=== PATIENT | female | born 1930 | race Caucasian/White ===

== ENCOUNTER 2017-02-02 23:41 | Inpatient (IN) ==
[2017-02-03] MEDS ORDERED: ONDANSETRON 4 MG/2 ML VIAL IV STA (00:01)
[2017-02-03] MEDS ORDERED: NITROGLYCERIN 2% OINT 1 INCH/GM PACK TOP STA (00:01)
[2017-02-03] MEDS ORDERED: ALUM/MAG/SIMETH/LIDO VISC 1:1 30 ML BOTTLE PO STA (00:01)
[2017-02-03] MEDS ORDERED: SODIUM CHLORIDE 0.9% 500 ML IV STA (00:01)
[2017-02-03] MEDS ORDERED: ASPIRIN 325 MG TABLET PO STA (00:01)
[2017-02-03] MEDS ORDERED: MORPHINE 2 MG/1 ML SYRINGE IV STA (00:01)
[2017-02-03] MEDS ORDERED: METOPROLOL TARTRATE 25 MG TABLET PO STA (00:01)
[2017-02-03] MEDS ORDERED: ONDANSETRON 4 MG/2 ML VIAL ONE ×2 (00:11→02:56)
[2017-02-03] MEDS ORDERED: METOPROLOL TARTRATE 25 MG TABLET ONE (00:13)
[2017-02-03] MEDS ORDERED: NITROGLYCERIN 2% OINT 1 INCH/GM PACK TOP ONE (00:13)
[2017-02-03] MEDS ORDERED: ASPIRIN 325 MG TABLET ONE (00:14)
[2017-02-03] MEDS ORDERED: MORPHINE 2 MG/1 ML SYRINGE ONE (00:14)
[2017-02-03] MEDS ORDERED: ALUM/MAG/SIMETH/LIDO VISC 1:1 30 ML BOTTLE PO ONE (00:14)
--- NOTE | 2017-02-03 00:15 | Emergency Department Note ---
Denzel Little Brooke, am scribing for, and in the presence of, Sagar Lopez MD 00 :09. Jessica Little Charles R, MD, personally performed the services described in this documentation, ascribed by Kylah Mahoney in my presence, and it is both accurate and complete . Arrival - Arrival Chief Complaint: Chest Pain Stated Complaint: chest pain ED Nursing Triage Note: brought in via ems c/o chest pain. midsternal pain with radiation through to back. +vomiting x 2 episodes. 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 pt recieved morphine total of 6mg. pt reports mild pressure at time of triage. Mode of Arrival: Stretcher Limitations: No Limitations Source: Patient, Family, EMS, RN Notes Reviewed Time Seen by Provider: 02/02/17 23:52 - History of Present Illness HPI Narrative: Patient is a 86 year old female who was brought into the ED by EMS with c/o chest pain that started around 2000 tonight. The pain had a sudden onset. Patient describes the pain as tight and says it is located on the right side of her chest. The pain radiates through to the right side of her back but does not radiate to the neck or shoulders. Patient called Family member around 2200 and told her she "didn't feel good." When Family arrived, she says Patient vomited twice. Patient says the pain then felt better after she vomited. She is no longer hurting and says she "feels normal." Patient does not have a history of heart problems. She denies having any shortness of breath. Patient has PMHx of HTN, thyroid disorder, squamous cell cancer of the mouth, bronchitis, and DVT. Patient first developed the squamous cell cancer in 1979. She has had a total of 14 surgeries to remove the cancer. The last surgery was in 2016. Family says Patient is not currently receiving chemotherapy or radiation. Patient has never used tobacco. She has never had an issue with aspiration and does not have trouble swallowing. All of her foods are liquid. Patient is currently prescribed Coumadin for the DVT. Her Primary Care Provider is Dr. Riojas and she has an appointment for a check up, on Wednesday. Allergies/Adverse Reactions: Allergies Allergy/AdvReac Type Severity Reaction Status Date / Time No Known Allergies Allergy Verified 07/19/16 11:18 Home Medications: Home Medications Medication Instructions Recorded Confirmed Type Calcium Carbonate 1,250 mg PO BID W/MEALS 03/13/16 04/23/16 History Denosumab [Prolia] 60 mg SUBCUT DIRECTED 03/13/16 04/23/16 History Levothyroxine Tab [Synthroid Tab] 100 mcg PO DAILY 03/13/16 04/23/16 History Raloxifene [Evista] 60 mg PO BEDTIME 03/13/16 04/23/16 History amLODIPine [Norvasc] 5 mg PO BEDTIME 03/13/16 04/23/16 History Diclofenac 1% Gel [Voltaren 1% Gel] 1 applic TOP QID #100 gm 07/19/16 Rx Hydrocodone/Acetaminophen [Hycet 10 ml PO Q6HR PRN #120 ml 07/19/16 Rx 7.5 mg-325 mg/15 ml Soln] Review of System - Review of System 12 point system: reviewed and no additional remarkable complaints except as stated - Review of System Constitutional: Absent: fever Respiratory: Absent: respiratory distress Cardiovascular: Present: chest pain Gastrointestinal: Present: vomiting Skin: Absent: rash Medical,Surgical,& Family Hx - Medical History Cardio: History of: Hypertension Neurology: No history of: Seizures HEENT: History of: Eye Problem (Glasses/Cataracts), HEENT Problems (Squamous Cell Ca-Mouth Dx 1979 x15 oral surgeries Last Aug 2015) Endocrine: History of: Thyroid Disorder Respiratory: History of: Bronchitis (Feb 2016 Last Flair Up) No history of: Pneumonia (Pneum Vac Hx), Respiratory Problems (Flu Vac 2014) Gastrointestinal: History of: GI Problems (Pills must be crushed or liquid- Syringe used-Pureed Foods) Hematology: History of: Clotting Problems (dvts) Other: History of: Cancer (Oral Ca-2yr cycle-Keeps Recurring-Dr. Venkat Garcia & Dr. 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) No history of: Anesthesia Reactions - Surgical History HEENT Surgeries: Patient denies: Eye Surgery (03/16/16 Sched for Cataract) Abdominal Surgeries: Patient denies: Colonoscopy, EGD - Social History Smoking Status: Never smoker Frequency of Alcohol Use: None Type of Drug Use: None Exam Vital Signs: Vital Signs Temperature 98.2 F 02/02/17 23:41 Pulse Rate 70 02/03/17 00:45 Respiratory Rate 21 02/03/17 00:45 Blood Pressure 158/69 02/03/17 00:45 O2 Sat by Pulse Oximetry 100 02/03/17 00:45 - General General appearance: alert, in no apparent distress - Head Head exam: Present: atraumatic, normocephalic, other (Deformities of the jaw from cancer) - Eye Eye exam: Present: normal appearance, PERRL, EOMI - ENT ENT exam: Present: normal exam - Neck Neck exam: Present: normal inspection - Chest Chest inspection: Present: normal inspection, symmetric chest wall rise - Respiratory Respiratory exam: Present: rhonchi (left), other (decreased breath sounds on the left) - Cardiovascular Cardiovascular exam: Present: regular rate, normal rhythm, normal heart sounds - Abdominal Exam Abdominal exam: Present: soft, normal bowel sounds. Absent: distention, tenderness - Extremities Exam Extremities exam: Present: normal inspection - Back Exam Back exam: Present: normal inspection - Neurological Exam Neurological exam: Present: alert, oriented X3 - Psychiatric Psychiatric exam: Present: normal affect, normal mood - Skin Skin exam: Present: warm, dry, intact, normal color Course - Consultations Consultation #1: Hospitalist will admit patient Time: 00:59 Results - Labs CBC & BMP: 02/03/17 00:00 02/03/17 00:00 Lab Results: I have reviewed the patients labs Labs: Laboratory Tests 02/03/17 00:00 INR 1.3 PT Patient/Control Mix 13.4 Laboratory Tests 02/03/17 02/03/17 02/03/17 00:00 00:00 00:00 WBC 7.5 RBC 4.21 Hgb 12.2 Hct 36.0 MCV 85.5 L MCH 29 MCHC 33.9 RDW 13.2 Plt Count 201 MPV 10.5 Neut % (Auto) 78.4 H Lymph % (Auto) 13.4 L [place] % (Auto) 5.4 Eos % (Auto) 1.3 Baso % (Auto) 0.7 Neut # (Auto) 5.9 Lymph # (Auto) 1.0 L [place] # (Auto) 0.4 Eos # (Auto) 0.1 Baso # (Auto) 0.1 Immature Gran % 0.8 Nucleated RBC % 0.0 Immature Gran # 0.06 Nucleated RBCs # 0.00 Immature Plt Fraction 0.0 Sodium 136 Potassium 3.4 L Chloride 100 Carbon Dioxide 29 Anion Gap 10.4 BUN 27 H Creatinine 1.20 H GFR Calculation 35 BUN/Creatinine Ratio 22.00 H Glucose 151 H Calculated Osmolality 279.0 Calcium 9.5 Magnesium 2.2 Total Bilirubin < 0.39 AST 21 ALT 13 Alkaline Phosphatase 45 Troponin I 0.034 Disposition Clinical Impression: Chest pain, Atypical chest pain, History of oral cancer Case discussed with: patient, patient's family Disposition: Still a Patient Condition: Stable Time of Disposition: 00:59
[2017-02-03 00:28] LABS: INR 1.3; PT Patient Result 13.4 SECS
[2017-02-03 00:41] LABS: Basophils # 0.1 10*3/uL (0.0-0.2); Basophils % 0.7 % (0.0-0.8); Eosinophils # 0.1 10*3/uL (0.0-0.87); Eosinophils % 1.3 % (0.00-10.9); Hemoglobin 12.2 GM/DL (12.0-16.0); Immature Granulocytes % 0.8 %; Immature Granulocytes Absolute 0.06 #; Lymphocytes % 13.4 % (21.3-54.2); Mean Corpuscular HGB Conc 33.9 GM/DL (32-36); Mean Corpuscular Hemoglobin 29 PG (27-34); Mean Corpuscular Volume 85.5 FL (87-102); Mean Platelet Volume 10.5 FL (9.6-12.0); Monocytes # 0.4 10*3/uL (0.11-0.8); Monocytes % 5.4 % (1.7-12.7); Neutrophils # 5.9 10*3/uL (1.4-7.4); Neutrophils % 78.4 % (38.7-73.9); Platelet Count 201 T/CUMM (130-400); Red Blood Count 4.21 MC/CUMM (3.8-5.5); Red Cell Distribution Width 13.2 % (9.3-17.3); White Blood Count 7.5 T/CUMM (4-12)
[2017-02-03 00:46] LABS: Alanine Aminotransferase 13 U/L (13-56); Albumin 3.8 G/DL (3.4-5.0); Alkaline Phosphatase 45 U/L (45-117); Aspartate Amino Transferase 21 U/L (0-37); Bilirubin,Total < 0.39 MG/DL (0.2-1.0); Blood Urea Nitrogen 27 MG/DL (7-18); Calcium 9.5 MG/DL (8.5-10.1); Glucose 151 MG/DL (74-106); Magnesium 2.2 MG/DL (1.8-2.4); Potassium 3.4 MMOL/L (3.5-5.1); Sodium 136 MMOL/L (136-145); Total Protein 7.8 G/DL (6.4-8.3)
[2017-02-03] MEDS ORDERED: INSULIN REGULAR 100 UNIT/ML SUBCUT ONE (02:22)
[2017-02-03] MEDS ORDERED: POTASSIUM CHLORIDE 20 MEQ TABLET PO PRN (02:22)
[2017-02-03] MEDS ORDERED: ONDANSETRON 4 MG/2 ML VIAL IV PRN (02:22)
--- NOTE | 2017-02-03 02:32 | Hospitalist History & Physical ---
Assessment and Plan (1) Hypertension Status: Acute Current Visit: Yes (2) History of DVT (deep vein thrombosis) Status: Acute Current Visit: Yes (3) Atypical chest pain Status: Acute Current Visit: Yes (4) History of oral cancer Status: Acute Assessment and plan: Our plan for this patient is to get her home medications confirmed. Going to admit her to telemetry. Will consult cardiology. We will draw serial cardiac enzymes. Check a fasting lipid profile and reevaluate patient in the morning. Current Visit: Yes History of Present Illness Chief complaint: Chest pain History of present illness: Ms. 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 Patient started feeling sick approximately 10 PM. She called her daughter and said she had a tight sensation in her chest. Daughter came O for to check on her she threw up approximately 2 times. Patient reported that the pain radiated to her back. Patient does not normally get an upset stomach and daughter became very concerned that was her heart. Patient's son is Luis Daniel Horner who is formally of [facility] [place] [facility]. I was consulted to admit her through the emergency room. Home Medications Medication Instructions Recorded Confirmed Type Calcium Carbonate 1,250 mg PO BID W/MEALS 03/13/16 04/23/16 History Denosumab [Prolia] 60 mg SUBCUT DIRECTED 03/13/16 04/23/16 History Levothyroxine Tab [Synthroid Tab] 100 mcg PO DAILY 03/13/16 04/23/16 History Raloxifene [Evista] 60 mg PO BEDTIME 03/13/16 04/23/16 History amLODIPine [Norvasc] 5 mg PO BEDTIME 03/13/16 04/23/16 History Diclofenac 1% Gel [Voltaren 1% Gel] 1 applic TOP QID #100 gm 07/19/16 Rx Hydrocodone/Acetaminophen [Hycet 10 ml PO Q6HR PRN #120 ml 07/19/16 Rx 7.5 mg-325 mg/15 ml Soln] Allergies Allergy/AdvReac Type Severity Reaction Status Date / Time No Known Allergies Allergy Verified 07/19/16 11:18 Medical,Surgical,& Family Hx - Medical History Cardio: History of: Hypertension Neurology: No history of: Seizures HEENT: History of: Eye Problem (Glasses/Cataracts), HEENT Problems (Squamous Cell Ca-Mouth Dx 1980 x15 oral surgeries Last Aug 2015) Endocrine: History of: Thyroid Disorder Respiratory: History of: Bronchitis (Feb 2016 Last Flair Up) No history of: Pneumonia (Pneum Vac Hx), Respiratory Problems (Flu Vac 2014) Gastrointestinal: History of: GI Problems (Pills must be crushed or liquid- Syringe used-Pureed Foods) Hematology: History of: Clotting Problems (dvts) Other: History of: Cancer (Oral Ca-2yr cycle-Keeps Recurring-Dr. Venkat Garcia & Dr. 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) No history of: Anesthesia Reactions - Surgical History HEENT Surgeries: Patient denies: Eye Surgery (03/16/16 Sched for Cataract) Abdominal Surgeries: Patient denies: Colonoscopy, EGD Additional Surgical History: Many surgery secondary to her squamous cell cancer - Family History Family History: Reports;: Family Hypertension - Social History Smoking Status: Never smoker Frequency of Alcohol Use: None Type of Drug Use: None 12 point system: reviewed and no additional remarkable complaints except as stated Exam - Constitutional Vitals: Period Temp Pulse Resp BP Sys/Suárez Pulse Ox Last 24 Hr 98.2 F-98.2 F 70-78 13-21 158-173/69-75 97-100 General appearance: under weight - Eye Eye exam: Present: EOMI Pupils: Present: LUIS - ENT ENT exam: Present: other (Patient has noticed lower jaw deformity secondary to her surgeries) - Respiratory Respiratory exam: Present: clear to auscultation bilaterally - Cardiovascular Cardiovascular exam: Present: regular rate and rhythm - GI/Abdominal GI/Abdominal exam: Present: normal bowel sounds - Extremities Exam Extremities exam: Present: normal inspection Results - Labs CBC & BMP: 02/03/17 00:00 02/03/17 00:00
[2017-02-03] MEDS ORDERED: ONDANSETRON 4 MG/2 ML VIAL IV ONE (02:58)
[2017-02-03 03:03] LABS: Risk Ratio 2.87; VLDL CHOLESTEROL 15.2 MG/DL
[2017-02-03] MEDS ORDERED: GLUCAGON 1 MG VIAL IM PRN (03:59)
[2017-02-03] MEDS ORDERED: DEXTROSE 50% 25 GM/50 ML SYRINGE IV PRN (03:59)
[2017-02-03] MEDS: PROMETHAZINE 25 MG/1 ML VIAL IM PRN ×2 (04:33→09:52)
--- NOTE | 2017-02-03 05:15 | EKG Report ---
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
[2017-02-03] MEDS: INSULIN REGULAR 100 UNIT/ML SUBCUT SCH ×3 (05:39→19:48)
[2017-02-03] MEDS ORDERED: NITROGLYCERIN 2% OINT 1 INCH/GM PACK TOP SCH (06:00)
--- NOTE | 2017-02-03 07:04 | XRay Report ---
XR chest 1V portable Indication: Chest pain Comparison: Chest x-ray dated January 25, 2014 Technique: Single frontal view of the chest. Findings: The cardiomediastinal silhouette is stable in configuration. Chronic change of the lungs without focal consolidation, pleural effusion, or pneumothorax. Visualized osseous and surrounding soft tissue structures appear grossly unchanged. IMPRESSION: Stable chest x-ray without acute cardiopulmonary process demonstrated. PROCEDURE INTERPRETED AT [facility] DEPARTMENT OF RADIOLOGY Final Report Signed by: Dr José Miguel Gutierrez
--- NOTE | 2017-02-03 08:02 | EKG Report ---
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
[2017-02-03] MEDS: ENOXAPARIN 40 MG/0.4 ML SYRINGE SUBCUT SCH (08:18)
[2017-02-03] MEDS ORDERED: ASPIRIN EC 81 MG TABLET PO SCH (09:00)
[2017-02-03] MEDS ORDERED: amLODIPine 5 MG TABLET PO SCH ×2 (09:21→21:00)
[2017-02-03] MEDS ORDERED: amLODIPine 10 MG TABLET PO SCH (09:22)
--- NOTE | 2017-02-03 09:23 | Cardiology Consult Note ---
Assessment and Plan - Time spent with patient Time spent with patient: Greater than 30 minutes (1) Atypical chest pain Status: Acute Assessment and plan: See plan of care listed below. Current Visit: Yes (2) Hypothyroidism Status: Chronic Assessment and plan: See plan of care listed below. Current Visit: Yes (3) Chronic anticoagulation Status: Chronic Assessment and plan: See plan of care listed below. Current Visit: Yes (4) Hyperglycemia Status: Acute Assessment and plan: See plan of care listed below. Current Visit: Yes (5) Nausea & vomiting Status: Acute Assessment and plan: See plan of care listed below. Current Visit: Yes (6) Abdominal pain Status: Acute Assessment and plan: See plan of care listed below. Current Visit: Yes (7) Hypokalemia Status: Acute Assessment and plan: See plan of care listed below. Current Visit: Yes (8) History of DVT (deep vein thrombosis) Status: Chronic Assessment and plan: See plan of care listed below. Current Visit: No (9) History of oral cancer Status: Acute Current Visit: Yes (10) Hypertension Status: Chronic Assessment and plan: See plan of care listed below. Current Visit: Yes History of Present Illness - Data of Consult Patient: new to practice Consult date: 02/03/17 Requesting Physician: Mla Winters Primary care physician: Kentrell Lu - Consult Narrative Reason for consult: ATYPICAL CHEST PAIN History of present illness: ENDOSCOPY TECHNICAN: NONE, NEW TO DR VILLALTA PCP: DR. LU Ms. Horner is a 86 year old female patient without known history of coronary artery disease, not routinely followed by cardiology. Patient has cardiac risk factors significant for advanced age and hypertension. She is a lifetime non- smoker and denies significant family history of coronary artery disease. She has a past medical history of DVT (chronically anticoagulated with Coumadin), hypothyroidism and mouth cancer (has had a total 14 oral surgeries, most recent surgery in 2016, not taking chemotherapy or radiation). All of her foods are in liquid form. Patient denies ever undergoing cardiac workup. Patient was in her usual state of health until last night around 8:00 she developed abdominal pain which then radiated into her chest. She describes this chest pain as a tightness located around her diaphragm as well as the right side of her chest. This radiated to her right arm and back area. Sudden onset that occurred while sitting at her dinner table. No exertional component. Not associated with shortness of breath or diaphoresis. Unable to identify any aggravating factors. She reports that she had "peanut butter and cake" for supper. Patient called her daughter around 10:00 that evening and reported to her that she was having abdominal pain and did not feel good. When her daughter arrived to her home, she vomited twice and reported that this helped her chest pain. However, she continued to feel nauseated. At that time , her daughter was concerned and felt that she needed to be further evaluated in the emergency department. In the emergency department, she vomited 3 more times. She describes her emesis as a green liquid. No diarrhea. She has had no further chest pain since being hospitalized. She has been admitted under hospitalist's service and housed on the telemetry unit. Cardiology has been consulted to further evaluate her atypical chest pain. Of note, patient continues to be active in her community. 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 Her daughter reports that she performs her daily activities without difficulty. She denies any changes in her activity/exercise tolerance. Denies dyspnea on exertion, easy fatigability , orthopnea, PND and lower extremity swelling. She also denies fever, chills and cough. Patient was seen and examined on the telemetry unit. She is currently without chest pain, heaviness or tightness. She continues to complain of mild back pain and continues to have intermittent spells of vomiting. She has ruled out for myocardial infarction with negative cardiac biomarkers 3. EKG does not reveal any ST changes concerning for ischemia. Creatinine mildly elevated at 1.2 with BUN 27. BNP stable at 137. She is chronically anticoagulated with Coumadin for previous history of DVT. INR 1.3. Chest x-ray stable. Patient' s chest pain is very atypical and does not sound cardiac in nature. Relieved after vomiting. She has ruled out for HI with negative cardiac biomarkers 3. EKG does not reveal any concerns for ischemia. I have ordered baseline echocardiogram. These results are pending. Patient has only has minimal risk factors for coronary disease including history of hypertension and advanced age. Lipid panel is unremarkable. I suspect that this is GI in nature. She may benefit from GI consult. I will continue to keep patient n.p.o. and further discuss with Dr. Villalta, further recommendations to follow. ASSESSMENT/PLAN 1. ATYPICAL CHEST PAIN - Patient's chest pain is very atypical and does not sound cardiac in nature. Relieved after vomiting. She has ruled out for HI with negative cardiac biomarkers 3. EKG does not reveal any concerns for ischemia. I have ordered baseline echocardiogram. These results are pending. Patient has only has minimal risk factors for coronary disease including history of hypertension and advanced age. Lipid panel is unremarkable. I suspect that this is GI in nature. She may benefit from GI consult. I will continue to keep patient n.p.o. and further discuss with Dr. Villalta, further recommendations to follow. 2. HISTORY OF HYPERTENSION - I have reinitiated patient's Norvasc, dose increased to 10 mg daily. Will monitor her blood pressure and adjust medications as needed. Heart rate unable to tolerate beta-blockade. 3. HISTORY OF MOUTH CANCER - Stable at present. 4. HYPOTHYROIDISM - Continue Synthroid. Management per attending. 5. HISTORY OF DVT, ON COUMADIN - INR 1.3. Continue with daily INR. 6. CHRONIC ANTICOAGULATION - Chronically anticoagulated for previous history of DVT. INR today 1.3. Daily INR. 7. HYPERGLYCEMIA - Hemoglobin A1c ordered. Sliding scale insulin has been ordered per attending. Accu-Cheks before meals and at bedtime. 8. NAUSEA/VOMITING/ABDOMINAL PAIN - This may be bowel related illness. White blood cell count normal. Afebrile. Continue with as needed Zofran. Patient may benefit from GI consultation. Consider KUB. 9. HYPOKALEMIA - Potassium 3.4. Will order per replacement protocol. Most likely secondary to vomiting. Daily BMP. CC: Chinyere Griffin MD - Home Medications and Allergies Home Medications: Home Medications Medication Instructions Recorded Confirmed Type Calcium Carbonate 1,250 mg PO BID W/MEALS 03/13/16 02/03/17 History Denosumab [Prolia] 60 mg SUBCUT DIRECTED 03/13/16 02/03/17 History Levothyroxine Tab [Synthroid Tab] 100 mcg PO DAILY 03/13/16 02/03/17 History Raloxifene [Evista] 60 mg PO BEDTIME 03/13/16 02/03/17 History amLODIPine [Norvasc] 5 mg PO BEDTIME 03/13/16 02/03/17 History Warfarin Sodium [Warfarin Sodium] 1 mg PO BID 02/03/17 02/03/17 History Warfarin Sodium [Warfarin Sodium] 1 mg PO DAILY 02/03/17 02/03/17 History Allergies/Adverse Reactions: Allergies Allergy/AdvReac Type Severity Reaction Status Date / Time No Known Allergies Allergy Verified 07/19/16 11:18 - Constitutional Constitutional: Present: as per HPI. Absent: chills, fatigue, fever(s), frequent falls, lethargy, malaise, weakness - Cardiovascular Cardiovascular: Present: as per HPI, chest pain at rest, radiating jaw, neck or arm pain. Absent: chest pain with activity, claudication, diaphoresis, dyspnea , dyspnea on exertion, edema, lightheadedness, orthopnea, palpitations, PND - Respiratory Respiratory: Present: as per HPI. Absent: cough, dyspnea, hemoptysis, dyspnea on exertion, wheezing, snoring, pain on inspiration, change in phlegm color - Gastrointestinal Gastrointestinal: Present: as per HPI, abdominal pain, nausea, vomiting. Absent : coffee ground emesis, hematemesis, hematochezia, melena - Neurological Neurological: Present: as per HPI. 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 Venkat Garcia & Dr. 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 Pleasant and cooperative. Appears comfortable. HEENT: PERRL. Mucous membranes moist. No jaundice noted. Deformities of jaw noted, secondary to surgical removal of oral cancer. Neck: No JVD/HJR, no thyromegaly or lymphadenopathy noted. No carotid bruit appreciated Cardiac: Regular rate and rhythm. No murmur rub or gallop. Lungs: Clear to auscultation without accessory muscle use to assist the respiratory pattern. Abdomen: Soft, bowel sounds normoactive. Nontender and nondistended. No abdominal bruit or thrill noted. No masses noted. Extremities: No clubbing, cyanosis noted. No edema noted. Upper extremity pulses 2+. Lower extremity pulses 2+. Capillary refill less than 3 seconds. Skin: No unusual lesions or rashes. No skin breakdown appreciated. Neuro: Awake, alert and oriented 3. Moves all extremities well without hemiparesis or paralysis. No essential tremor is appreciated. Result/EKG - Labs CBC & BMP: 02/03/17 00:00 02/03/17 00:00 Lab Results: I have reviewed the past 24 hour labs Labs: Laboratory Results - last 24 hr 02/03/17 02/03/17 02/03/17 00:00 00:00 00:00 WBC RBC Hgb Hct MCV MCH MCHC RDW Plt Count MPV Neut % (Auto) Lymph % (Auto) Labette % (Auto) Eos % (Auto) Baso % (Auto) Neut # (Auto) Lymph # (Auto) [place] # (Auto) Eos # (Auto) Baso # (Auto) Immature Gran % Nucleated RBC % Immature Gran # Nucleated RBCs # Immature Plt Fraction INR 1.3 PT Patient/Control Mix 13.4 Sodium 136 Potassium 3.4 L Chloride 100 Carbon Dioxide 29 Anion Gap 10.4 BUN 27 H Creatinine 1.20 H GFR Calculation 35 BUN/Creatinine Ratio 22.00 H Glucose 151 H POC Glucose Calculated Osmolality 279.0 Calcium 9.5 Magnesium 2.2 Total Bilirubin < 0.39 AST 21 ALT 13 Alkaline Phosphatase 45 Troponin I B-Natriuretic Peptide 137 H Total Protein 7.8 Albumin 3.8 Globulin 4.0 H Albumin/Globulin Ratio 0.9 L Triglycerides Cholesterol LDL Cholesterol VLDL Cholesterol HDL Cholesterol Heart Disease Risk Ratio Lipase 217.0 02/03/17 02/03/17 02/03/17 00:00 00:00 01:53 WBC 7.5 RBC 4.21 Hgb 12.2 Hct 36.0 MCV 85.5 L MCH 29 MCHC 33.9 RDW 13.2 Plt Count 201 MPV 10.5 Neut % (Auto) 78.4 H Lymph % (Auto) 13.4 L Labette % (Auto) 5.4 Eos % (Auto) 1.3 Baso % (Auto) 0.7 Neut # (Auto) 5.9 Lymph # (Auto) 1.0 L Labette # (Auto) 0.4 Eos # (Auto) 0.1 Baso # (Auto) 0.1 Immature Gran % 0.8 Nucleated RBC % 0.0 Immature Gran # 0.06 Nucleated RBCs # 0.00 Immature Plt Fraction 0.0 INR PT Patient/Control Mix Sodium Potassium Chloride Carbon Dioxide Anion Gap BUN Creatinine GFR Calculation BUN/Creatinine Ratio Glucose POC Glucose Calculated Osmolality Calcium Magnesium Total Bilirubin AST ALT Alkaline Phosphatase Troponin I 0.034 B-Natriuretic Peptide Total Protein Albumin Globulin Albumin/Globulin Ratio Triglycerides 76 Cholesterol 158 LDL Cholesterol 77.0 VLDL Cholesterol 15.2 HDL Cholesterol 55 Heart Disease Risk Ratio 2.87 Lipase 02/03/17 02/03/17 02/03/17 04:04 05:10 06:29 WBC RBC Hgb Hct MCV MCH MCHC RDW Plt Count MPV Neut % (Auto) Lymph % (Auto) Labette % (Auto) Eos % (Auto) Baso % (Auto) Neut # (Auto) Lymph # (Auto) Labette # (Auto) Eos # (Auto) Baso # (Auto) Immature Gran % Nucleated RBC % Immature Gran # Nucleated RBCs # Immature Plt Fraction INR PT Patient/Control Mix Sodium Potassium Chloride Carbon Dioxide Anion Gap BUN Creatinine GFR Calculation BUN/Creatinine Ratio Glucose POC Glucose 189 H Calculated Osmolality Calcium Magnesium Total Bilirubin AST ALT Alkaline Phosphatase Troponin I 0.032 0.041 B-Natriuretic Peptide Total Protein Albumin Globulin Albumin/Globulin Ratio Triglycerides Cholesterol LDL Cholesterol VLDL Cholesterol HDL Cholesterol Heart Disease Risk Ratio Lipase - EKG EKG results: interpreted by me, sinus rhythm
[2017-02-03] MEDS ORDERED: PROMETHAZINE 25 MG/1 ML VIAL IM PRN (10:16)
[2017-02-03] MEDS: PANTOPRAZOLE 40 MG VIAL IV SCH ×2 (11:26→21:36)
--- NOTE | 2017-02-03 11:27 | Gastrointestinal Consult Note ---
<AndrezalysiaKylah Fely - Last Filed: 02/03/17 11:17> Assessment and Plan (1) Abdominal pain Status: Acute Assessment and plan: 02/03-sudden onset of right upper quadrant abdominal pain radiating through to back with associated nausea and vomiting, intractable at present time. No history of gallbladder disease in the past. No known history of upper endoscopy or peptic ulcer disease. Anticoagulation held at present time with INR 1.3. Obtain abdominal ultrasound and KUB. Further plan an addendum to follow by Dr. Bailey. Current Visit: Yes History of Present Illness Chief complaint: Nausea, vomiting, abd pain History of present illness: Ms. Horner is a 86 year old female who was admitted to the hospital with sudden onset of nausea, vomiting and abdominal pain. Pt is a fair historian however daughter at bedside and contributes to health information. Chart review was also done. Pt was in her usual state of health until yesterday afternoon when she began not feeling well and had a sudden onset of RUQ abdominal pain that radiated to her back. Shortly after this she had an onset of nausea and vomiting. Pt daugther states she vomited twice, green bilious emesis. She states that she continued to complain of the abdominal pain therefore brought her to the hospital for further evaluation. 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 She is followed in [place] for this as well as here by Dr Meyer. 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 She lives alone and cares for herself as well. states she has been with her grandaugther recently who has had some vague abdominal pain but no other symptoms. Patient has not complained of any melena or hematochezia associated with this. She has had no complaints of GERD, dysphagia, dyspepsia. Denies any NSAID use on a regular basis. Denies any recent weight loss. Patient has had multiple episodes of vomiting since admission on yesterday. She has had no reported diarrhea with this. The only endoscopy records noted in our facility database is in 2000 in which she had a colonoscopy with only findings of diverticulosis. No reported history of peptic ulcer disease in the past are EGD. Patient is noted to be on Coumadin due to a questionable DVT from September of this year. This is currently being held however her INR is noted to be 1.3 cardiology initially evaluated the patient however sign off at this time due to not felt to be cardiac origin. H& H is unremarkable . BUN/creatinine is mildly elevated at 22. Home Medications Medication Instructions Recorded Confirmed Type Calcium Carbonate 1,250 mg PO BID W/MEALS 03/13/16 02/03/17 History Denosumab [Prolia] 60 mg SUBCUT DIRECTED 03/13/16 02/03/17 History Levothyroxine Tab [Synthroid Tab] 100 mcg PO DAILY 03/13/16 02/03/17 History Raloxifene [Evista] 60 mg PO BEDTIME 03/13/16 02/03/17 History amLODIPine [Norvasc] 5 mg PO BEDTIME 03/13/16 02/03/17 History Warfarin Sodium [Warfarin Sodium] 1 mg PO BID 02/03/17 02/03/17 History Warfarin Sodium [Warfarin Sodium] 1 mg PO DAILY 02/03/17 02/03/17 History Allergies Allergy/AdvReac Type Severity Reaction Status Date / Time No Known Allergies Allergy Verified 07/19/16 11:18 Medical,Surgical,& Family Hx - Medical History Cardio: History of: Hypertension Neurology: No history of: Seizures HEENT: History of: Eye Problem (Glasses/Cataracts), Dental Problems, Oral Cancer , HEENT Problems (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 Venkat Garcia & Dr. 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) No history of: Anesthesia Reactions - Surgical History HEENT Surgeries: Surgical HX of: Eye Surgery Abdominal Surgeries: Patient denies: Colonoscopy, EGD - Family History Family History: Reports;: Family Hypertension Denies;: Family Heart Disease - Social History Smoking Status: Never smoker Frequency of Alcohol Use: None Type of Drug Use: None ROS unobtainable: other (Somnolent from Phenergan) Exam - Constitutional Vitals: Period Temp Pulse Resp BP Sys/Suárez Pulse Ox Last 24 Hr 97.3 F-98.2 F 65-78 13-21 146-173/69-84 97-100 General appearance: normal weight, no acute distress - Head Head exam: Present: normal inspection, normocephalic - Eye Eye exam: Present: other (Lids and conjunctivae are unremarkable). Absent: scleral icterus - ENT ENT exam: Present: normal exam, normal oropharynx - Neck Neck exam: Present: normal inspection - Respiratory Respiratory exam: Present: clear to auscultation bilaterally. Absent: rales, rhonchi, wheezes - Cardiovascular Cardiovascular exam: Present: regular rate and rhythm. Absent: diastolic murmur , JVD, systolic murmur - GI/Abdominal GI/Abdominal exam: Present: normal bowel sounds, soft. Absent: ascites, distended, mass, organomegaly, tenderness - Extremities Exam Extremities exam: Present: normal inspection, full ROM - Back Exam Back exam: Present: normal inspection - Neurological Exam Neurological exam: Present: altered - Psychiatric Psychiatric exam: Present: other - Skin Skin exam: Present: normal color, warm, dry Results - Labs CBC & BMP: 02/03/17 00:00 02/03/17 00:00 Lab Results: I have reviewed the past 24 hour labs <Spike Bailey - Last Filed: 02/03/17 19:17> History of Present Illness History of present illness: Ms. Horner is a 86 year old female Exam - Constitutional Vitals: Period Temp Pulse Resp BP Sys/Suárez Pulse Ox Last 24 Hr 97.3 F-99.3 F 65-79 13-21 146-173/69-84 95-100 Results - Labs CBC & BMP: 02/03/17 00:00 02/03/17 00:00
[2017-02-03] MEDS: POTASSIUM CHLORIDE INJ 40 MEQ in SODIUM CHLORIDE 0.45% 1,000 ML IV SCH (11:30)
--- NOTE | 2017-02-03 11:49 | Hospitalist Progress Note ---
Assessment and Plan (1) Nausea & vomiting Status: Acute Assessment and plan: KUB and abdominal ultrasound. Looking for any signs of obstruction or gallbladder dysfunction. No elevation in the liver enzymes. Consult GI. Given her IV Protonix. Most likely secondary to gastritis due to aspirin and Coumadin. Current Visit: Yes (2) Hypertension Status: Chronic Assessment and plan: Continue Norvasc Current Visit: Yes (3) Hypothyroidism Status: Chronic Assessment and plan: Continue levothyroxine Current Visit: Yes (4) Chronic anticoagulation Status: Chronic Assessment and plan: Stop Coumadin and aspirin okay to give DVT prophylaxis Lovenox. Coumadin is not therapeutic has never been therapeutic. Venous Dopplers from September 2016 show clots in the superficial veins only not in the deep veins. Anticoagulation according to the most recent studies are not recommended. Current Visit: Yes (5) Hyperglycemia Status: Acute Assessment and plan: Hemoglobin A1c is 5.9. Current Visit: Yes (6) Abdominal pain Status: Acute Assessment and plan: Patient has some epigastric tenderness making me concerned for ulcers versus gastritis. No evidence of anemia. Await GI input. Await abdominal film and abdominal ultrasound Current Visit: Yes (7) Hypokalemia Status: Acute Assessment and plan: Replacing IV and will recheck in a.m. 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 Patient still having severe nausea. On presentation it seems like she is tender in the epigastric region. I have canceled the cardiology consult. I have asked GI to see her. We have ordered an abdominal film and ultrasound of her gallbladder. She looks slightly dehydrated and have started IV fluids. We have confirmed her CODE STATUS is DNR. Based on the review of her previous venous ultrasound she is not a candidate for any anticoagulation and this will be discontinued. Exam - Constitutional Vitals: Period Temp Pulse Resp BP Sys/Suárez Pulse Ox Last 24 Hr 97.3 F-98.2 F 65-78 13-21 146-173/69-84 97-100 Exam: Heart Rate-[RRR] Lungs-[CTAB] GI-[+bs tender in the epigastric region Ext-[no edema] Neuro [Motor 5/5], [alert and oriented times 1] psych [anxious mood and affect] General [mild acute distress due to vomiting] Results - Labs CBC & BMP: 02/03/17 00:00 02/03/17 00:00 Lab Results: I have reviewed the past 24 hour labs Labs: Hemoglobin A1c 5.9, BNP 137 - Diagnostic Findings Procedure: Chest x-ray: report reviewed by me (Nothing acute), Ultrasound: report reviewed by me (No evidence of deep vein thrombosis)
[2017-02-03] MEDS: METOCLOPRAMIDE 10 MG/2 ML VIAL IV SCH ×2 (12:30→21:36)
--- NOTE | 2017-02-03 13:40 | XRay Report ---
XR KUB Indication: Generalized abdominal pain, nausea and vomiting Comparison: None Technique: Frontal views of the abdomen Findings: Nonspecific nonobstructive bowel gas pattern. Diffuse osteopenia. Significant dextroconvex curvature of the lumbar spine. IMPRESSION: As above. PROCEDURE INTERPRETED AT [facility] DEPARTMENT OF RADIOLOGY Final Report Signed by: Dr José Miguel Gutierrez
--- NOTE | 2017-02-03 14:03 | Ultrasound Report ---
Exam: US abdomen Indication: Abdominal pain. Nausea. Vomiting. Comparison: None Technique: Using a transcutaneous probe, multiple grayscale and color Doppler images of the liver, gallbladder, spleen, pancreas, right kidney, left kidney, aorta, and inferior vena cava were captured and stored. Findings: Liver: The liver measures 12.7 cm . Liver appears to be somewhat heterogeneous in appearance. No focal hepatic mass is noted. Echotexture of the liver is isoechoic to the right renal cortex. Color flow is present within the interrogated segments of the portal and hepatic veins. Gallbladder: Numerous echogenic stones lie dependently within the gallbladder fundus. The gallbladder wall measures 8.5 mm. The common bile duct measures 8 mm. Small amount of pericholecystic fluid is noted along the near wall of the gallbladder. Pancreas: The pancreas demonstrates no significant abnormality. Spleen: Spleen is obscured. Right kidney: The right kidney demonstrates no evidence of acute pathology. No hydronephrosis or perinephric fluid collection is present. The right kidney measures: Length: 8.8 cm cm Width: 4.3 cm cm AP: 3.7 cm cm. Left kidney: Left kidney is obscured from bowel gas. Aorta: Longitudinal images of the aorta demonstrate no significant abnormalities. Inferior vena cava: Inferior vena cava demonstrates no significant abnormality. Color flow is present. Impression: 1. Numerous gallstones are demonstrated. In addition to cholelithiasis, gallbladder wall thickening is present and pericholecystic fluid is demonstrated. The appearance is considered compatible with acute cholecystitis. 2. Dilation of the intrahepatic bile duct is noted without ultrasound evidence of choledocholithiasis. PROCEDURE INTERPRETED AT [facility] DEPARTMENT OF RADIOLOGY Final Report Signed by: Dr. Lei Villanueva
[2017-02-04] MEDS: METOCLOPRAMIDE 10 MG/2 ML VIAL IV SCH ×4 (01:20→19:49)
[2017-02-04] MEDS: INSULIN REGULAR 100 UNIT/ML SUBCUT SCH ×4 (01:27→18:10)
[2017-02-04 04:46] LABS: Basophils % 0.2 % (0.0-0.8); Eosinophils % 0.1 % (0.00-10.9); Hematocrit 42.5 VOL% (35.7-47.0); Hemoglobin 14.7 GM/DL (12.0-16.0); Immature Granulocytes % 0.3 %; Immature Granulocytes Absolute 0.05 #; Lymphocytes % 12.4 % (21.3-54.2); Mean Corpuscular HGB Conc 34.6 GM/DL (32-36); Mean Corpuscular Hemoglobin 29 PG (27-34); Mean Platelet Volume 10.5 FL (9.6-12.0); Monocytes # 1.2 10*3/uL (0.11-0.8); Monocytes % 7.4 % (1.7-12.7); Neutrophils # 12.8 10*3/uL (1.4-7.4); Neutrophils % 79.6 % (38.7-73.9); Platelet Count 241 T/CUMM (130-400); Red Cell Distribution Width 13.2 % (9.3-17.3)
[2017-02-04 05:21] LABS: Calcium 8.1 MG/DL (8.5-10.1); Magnesium 2.2 MG/DL (1.8-2.4); Osmolality,Calculated 272.2 MOS/KG (273-304); Potassium 3.8 MMOL/L (3.5-5.1)
[2017-02-04 05:44] LABS: INR 1.6; PT Patient Result 17.9 SECS
[2017-02-04] MEDS: PANTOPRAZOLE 40 MG VIAL IV SCH ×2 (09:45→20:43)
--- NOTE | 2017-02-04 12:06 | History and Physical Update ---
History and Physical Update - Physical Exam Mental Status: alert and oriented Heart: regular rate and rhythm Lung: clear to auscultation Abdomen: within normal limits Vitals: within normal limits
--- NOTE | 2017-02-04 12:15 | Operative Note ---
Date of procedure: 02/04/17 Pre-op diagnosis: Nausea and vomiting with upper abdominal pain Procedure: EGD with biopsy 86-year-old female with complaints of abdominal pain nausea vomiting now for upper endoscopy to further evaluate. Ultrasound does show gallstones. Informed symptoms obtained patient She was sedated with MAC anesthesia per anesthesia protocol. Patient placed in left lateral decubitus position. She has a very small mouth due to previous left mandibular resection. The Olympus flexible video upper endoscope was inserted oral cavity under direct vision the esophagus intubated. No hypopharyngeal lesions were identified. The scope was advanced under direct vision into the esophagus. Findings: Esophagus-normal proximal mid esophageal mucosa distal esophagus small hiatal hernia no significant esophagitis is seen. Stomach-normal insufflation multiple gastric polyps are seen. No other mucosal abnormalities were seen to direct retroflexed views of the body, fundus, cardia and antrum the stomach. Biopsies of the gastric polyps were taken Pylorus-normal Duodenum-normal for the bulb duodenum to the third portion of duodenum. I could not definitively identify her ampulla with the forward-viewing scope. The procedure was terminated placed our procedure well she is discharged recovery in good condition. Postop diagnosis: 1. Gastroesophageal reflux disease with small hiatal hernia-no endoscopic evidence of significant inflammatory change continue PPI treatment 2. Abdominal pain suspect symptomatic gallstones recommend surgery consultation for cholecystectomy. Her common bile duct is mildly dilated but for her age this may be an anatomic variant and with normal liver test her likelihood of common duct stone is approximately 30%. Will discuss with surgery after they see her whether or not they wish to proceed with surgery and post ERCP if needed or preoperative ERCP. I think either approach is appropriate. Anesthesia: MAC Surgeon / Physician: Spike Bailey Estimated blood loss: none Specimens: other (Gastric polyps) Condition: stable Disposition: post procedure unit Results - Labs CBC & BMP: 02/04/17 04:18 02/04/17 04:18 Discharge Plan - Discharge Medications No Action Denosumab [Prolia] 60 mg SUBCUT DIRECTED amLODIPine [Norvasc] 5 mg PO BEDTIME Raloxifene [Evista] 60 mg PO BEDTIME Levothyroxine Tab [Synthroid Tab] 100 mcg PO DAILY Calcium Carbonate 1,250 mg PO BID W/MEALS Warfarin Sodium [Warfarin Sodium] 1 mg PO BID Warfarin Sodium [Warfarin Sodium] 1 mg PO DAILY - Follow Up or Referral - Forms/Instructions
--- NOTE | 2017-02-04 12:40 | Anesthesia Post-Op ---
Anesthesia Post OP - Post Ansesthetic Evaluation Patient seen in post op: Yes Resp: within normal limits CV: within normal limits Mental: within normal limits Temp: within normal limits Wbuy-Ng-Zbaxqekul: within normal limits Nausea and Vomiting: within normal limits Pain: within normal limits
--- NOTE | 2017-02-04 13:07 | Hospitalist Progress Note ---
Assessment and Plan (1) Acute cholecystitis Status: Acute Assessment and plan: start Invanz and surgical consult Current Visit: Yes (2) Hypertension Status: Chronic Assessment and plan: Hold Norvasc Current Visit: Yes (3) Hypothyroidism Status: Chronic Assessment and plan: Continue levothyroxine Current Visit: Yes (4) Chronic anticoagulation Status: Chronic Assessment and plan: No need for further anticoagulation Current Visit: Yes (5) Abdominal pain Status: Acute Assessment and plan: Most likely secondary to cholecystitis. EGD showed GERD small hiatal hernia. Current Visit: Yes (6) Hypokalemia Status: Acute Assessment and plan: Replaced Current Visit: Yes (7) GERD (gastroesophageal reflux disease) Status: Acute Assessment and plan: cont protonix IV bid Current Visit: Yes (8) Hyponatremia Status: Acute Assessment and plan: ns at 50 ml/hr Current Visit: Yes Hospitalist: Subjective Interval history: Patient white count has gone up today and we have started her on Invanz. Discuss with family about proceeding with darnell hernandez. The personally requested Dr. Ann WITT but I was not sure if he was available today. Dr. Andrade was consulted because he is python java developer. Exam - Constitutional Vitals: Period Temp Pulse Resp BP Sys/Suárez Pulse Ox Last 24 Hr 98.8 F-100.0 F 77-99 16-32 113-164/60-76 93-98 Exam: Heart Rate-[RRR] Lungs-[CTAB] GI-[+bs tender in the epigastric region Ext-[no edema] Neuro [Motor 5/5], [alert and oriented times 1] psych [normal mood and affect] General [no acute distress Results - Labs CBC & BMP: 02/04/17 04:18 02/04/17 04:18 Lab Results: I have reviewed the past 24 hour labs Labs: Blood cultures 2 pending - Diagnostic Findings Procedure: KUB x-ray: report reviewed by me (No evidence of obstruction), Ultrasound: report reviewed by me (Cholelithiasis with cholecystitis.)
[2017-02-04] MEDS: ENOXAPARIN 40 MG/0.4 ML SYRINGE SUBCUT SCH (13:15)
[2017-02-04] MEDS: SODIUM CHLORIDE 0.9% 1,000 ML IV SCH (13:33)
[2017-02-04] MEDS: ERTAPENEM 500 MG in SODIUM CHLORIDE 0.9% 100 ML IV SCH (13:38)
--- NOTE | 2017-02-04 16:34 | General Surgery Consult Note ---
Assessment and Plan - Time spent with patient Time spent with patient: Greater than 30 minutes (1) Acute cholecystitis Status: Acute Assessment and plan: She has a subacute cholecystitis creating a mass-effect in the right upper quadrant on exam with vague tenderness. With a thickened gallbladder I think that this is going to be a difficult cholecystectomy. This was discussed with the patient and her family. I have explained that we could either go ahead with a laparoscopic cholecystectomy with the understanding that there is a high chance of conversion to open and the potential for a more prolonged recovery or we could look at the option of percutaneous drainage and antibiotics. They are interested in percutaneous drainage and also discussed this with Dr. Bailey and he is in agreement. I have discussed this case also with Dr. Lozano from interventional radiology. She has an INR which is actually elevated from yesterday. It makes me wonder if yesterday's INR was in error. We will check this again in the morning to make sure that it is not increasing. I think that she will probably be okay for procedure tomorrow. Dr. Lozano is unable to get a satisfactory result from percutaneous drainage then we can look at surgery. The risks and benefits of each of these approaches were discussed in detail with the patient and the family and they agree with the current plan. I understand that we can change the plan as needed if she fails to respond to more conservative treatment Current Visit: Yes History of Present Illness Chief complaint: Gallbladder History of present illness: Ms. Horner is a 86 year old female Who for 3 days has had constant right upper quadrant pain. This pain has been vague and poorly localized and occasionally radiating to her back. She had an ultrasound showing gallstones and a markedly thickened gallbladder at 8.5 mm with pericholecystic fluid. She denies having severe pain and feels like it is more of a dull ache in her right upper quadrant. She has not had jaundice. She denies fever or chills but did have low-grade temperature last night. She seems to her family to be a little better since she got IV fluids. Home Medications Medication Instructions Recorded Confirmed Type Calcium Carbonate 1,250 mg PO BID W/MEALS 03/13/16 02/03/17 History Denosumab [Prolia] 60 mg SUBCUT DIRECTED 03/13/16 02/03/17 History Levothyroxine Tab [Synthroid Tab] 100 mcg PO DAILY 03/13/16 02/03/17 History Raloxifene [Evista] 60 mg PO BEDTIME 03/13/16 02/03/17 History amLODIPine [Norvasc] 5 mg PO BEDTIME 03/13/16 02/03/17 History Warfarin Sodium [Warfarin Sodium] 1 mg PO BID 02/03/17 02/03/17 History Warfarin Sodium [Warfarin Sodium] 1 mg PO DAILY 02/03/17 02/03/17 History Allergies Allergy/AdvReac Type Severity Reaction Status Date / Time No Known Allergies Allergy Verified 07/19/16 11:18 Medical,Surgical,& Family Hx - Medical History Cardio: History of: Hypertension Neurology: History of: Seizures HEENT: History of: Eye Problem (Glasses/Cataracts), Dental Problems, Oral Cancer , HEENT Problems (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 Venkat Garcia & Dr. 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) No history of: Anesthesia Reactions - Surgical History HEENT Surgeries: Surgical HX of: Eye Surgery Abdominal Surgeries: Patient denies: Colonoscopy, EGD Additional Surgical History: Left mandibular resection for oral cancer - Family History Family History: Reports;: Family Hypertension Denies;: Family Heart Disease - Social History Smoking Status: Never smoker Frequency of Alcohol Use: None Type of Drug Use: None - Constitutional Constitutional: Absent: anorexia, chills, fever(s) - Cardiovascular Cardiovascular: Absent: chest pain at rest, chest pain with activity, dyspnea, dyspnea on exertion, syncope - Respiratory Respiratory: Absent: dyspnea, hemoptysis, dyspnea on exertion - Gastrointestinal Gastrointestinal: Present: abdominal pain, nausea. Absent: cramping, hematemesis, hematochezia, vomiting, jaundice Hematologic/Lymphatic: Present: easy bleeding, easy bruising Exam - Constitutional Vitals: Period Temp Pulse Resp BP Sys/Suárez Pulse Ox Last 24 Hr 98.8 F-100.0 F 77-99 16-32 108-164/52-76 93-98 General appearance: no acute distress - Head Head exam: Present: normocephalic - Eye Eye exam: Absent: scleral icterus - ENT Mouth exam: Present: other (Status post mandibular resection) - Neck Neck exam: Present: trachea midline - Respiratory Respiratory exam: Present: clear to auscultation bilaterally. Absent: accessory muscle use - Cardiovascular Cardiovascular exam: Present: RRR - GI/Abdominal GI/Abdominal exam: Present: mass, tenderness, soft. Absent: distended, guarding , rebound - Neurological Exam Neurological exam: Present: alert, oriented X3. Absent: motor sensory deficit Speech: Present: normal - Skin Skin exam: Present: normal color Results - Labs CBC & BMP: 02/04/17 04:18 02/04/17 04:18 Lab Results: I have reviewed the past 24 hour labs - Diagnostic Findings Procedure: Ultrasound: report reviewed by me
[2017-02-04] MEDS: LEVOTHYROXINE 100 MCG TABLET PO SCH (17:09)
[2017-02-05] MEDS: METOCLOPRAMIDE 10 MG/2 ML VIAL IV SCH ×3 (02:00→12:21)
[2017-02-05] MEDS: INSULIN REGULAR 100 UNIT/ML SUBCUT SCH ×5 (02:52→20:45)
[2017-02-05 05:48] LABS: INR 1.9; PT Patient Result 20.7 SECS
[2017-02-05 05:54] LABS: Calcium 6.9 MG/DL (8.5-10.1); Magnesium 2.1 MG/DL (1.8-2.4); Osmolality,Calculated 280.4 MOS/KG (273-304); Potassium 3.4 MMOL/L (3.5-5.1)
[2017-02-05 06:03] LABS: PT Patient Result 21.1 SECS
[2017-02-05 06:04] LABS: Basophils % 0.2 % (0.0-0.8); Eosinophils # 0.1 10*3/uL (0.0-0.87); Eosinophils % 0.8 % (0.00-10.9); Hematocrit 36.8 VOL% (35.7-47.0); Hemoglobin 12.3 GM/DL (12.0-16.0); Immature Granulocytes % 0.4 %; Immature Granulocytes Absolute 0.05 #; Lymphocytes # 0.8 10*3/uL (1.4-4.0); Mean Corpuscular HGB Conc 33.4 GM/DL (32-36); Mean Corpuscular Hemoglobin 29 PG (27-34); Mean Corpuscular Volume 86.8 FL (87-102); Monocytes # 0.9 10*3/uL (0.11-0.8); Monocytes % 7.1 % (1.7-12.7); Neutrophils # 10.8 10*3/uL (1.4-7.4); Neutrophils % 85.5 % (38.7-73.9); Platelet Count 163 T/CUMM (130-400); Red Blood Count 4.24 MC/CUMM (3.8-5.5); Red Cell Distribution Width 13.7 % (9.3-17.3); White Blood Count 12.6 T/CUMM (4-12)
[2017-02-05] MEDS ORDERED: SODIUM CHLORIDE 0.9% 250 ML IV PRN (07:46)
--- NOTE | 2017-02-05 08:36 | Physician Query Form ---
CLICK EDIT DOCUMENT TO SELECT QUERY ANSWER --> OK --> SIGN Peg Villanueva RN, CCDS Certified Clinical Cold Reduction Roller W) [phone] (f) [phone] [email or web address] PROVIDERS: Make your selection(s) from the choices in EACH section by typing an "x" and enter comments in the comment section. Please use your independent medical judgment in providing your response. This request does not imply that any particular answer is desired or expected. 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 ( x) Malnutrition ( ) mild ( x) moderate ( ) severe ( ) Protein calorie malnutrition ( ) mild ( ) moderate ( ) severe ( ) Emaciation due to malnutrition ( ) Nutritional marasmus ( ) Cachexia ( ) Underweight ( ) No nutritional deficiency ( ) Other, please specify: ( ) Clinically unable to determine Mild Malnutrition (BMI < 18.5, % Normal Body Weight 85-95%) Moderate Malnutrition (BMI < 17, % Normal Body Weight 75-85%) Severe Malnutrition (BMI < 16, % Normal Body Weight < 75%) Source: Reta COMMENTS: PLEASE ALSO DOCUMENT RESPONSE IN PROGRESS NOTES AND/OR DISCHARGE SUMMARY Use of terms such as suspected, likely, or probable (associated with a specific diagnosis that is being evaluated, monitored, or treated as if it exists) are acceptable and can be restated in the discharge summary if not ruled out. MTDD
[2017-02-05] MEDS ORDERED: MIDAZOLAM 2 MG/2 ML VIAL IV ONE (09:29)
[2017-02-05] MEDS ORDERED: fentaNYL 100 MCG/2 ML VIAL IV ONE (09:29)
[2017-02-05] MEDS ORDERED: DIAZEPAM 5 MG TABLET PO ONE (09:29)
[2017-02-05] MEDS: PANTOPRAZOLE 40 MG VIAL IV SCH (09:33)
--- NOTE | 2017-02-05 09:33 | IR History and Physical Update ---
IR Pre-Procedure - History and Physical H&P was reviewed, the patient examined and there: are no changes in the patients condition since last H&P was completed. Reason for procedure:: 86 yo F w/ cholecystitis. Poor operative candidate. General surgery requesting perc mary. - Dictation Physical: refer to H&P completed by admitting physician - Physical Exam Vital Signs: Last Vital Signs Temp 98 F 02/05/17 08:00 Pulse 76 02/05/17 08:00 Resp 16 02/05/17 08:00 BP 98/52 02/05/17 08:00 Pulse Ox 95 02/05/17 08:00 Mental Status: alert and oriented - Sedation IR anesthesia plan for sedation: minimal ASA Class: II - Risks Risks: Procedures explained. Risks discussed include, but not limited to, the following:[pain, bleeding, peritonitis ] All questions answered. The following alternatives were discussed:[surgery ] Risks and benefits discussed with: patient Consent obtained from: patient Assessment and Plan - Time spent with patient Time spent with patient: Less than 30 minutes (1) Acute cholecystitis Status: Acute Assessment and plan: A: Acute cholecystits P: Percutaneous cholecystostomy today after FFP infusion complete Current Visit: Yes
[2017-02-05] MEDS: LEVOTHYROXINE 100 MCG TABLET PO SCH (09:34)
--- NOTE | 2017-02-05 09:37 | Gastrointestinal Progress Note ---
<HuiKylah Fely - Last Filed: 02/05/17 09:34> Assessment and Plan (1) Abdominal pain Status: Acute Assessment and plan: 02/05-continued mild upper abdominal pain, no nausea vomiting. EGD findings noted. For percutaneous cholecystostomy tube today. Further plan an addendum to follow Dr. Leo condon 02/03-sudden onset of right upper quadrant abdominal pain radiating through to back with associated nausea and vomiting, intractable at present time. No history of gallbladder disease in the past. No known history of upper endoscopy or peptic ulcer disease. Anticoagulation held at present time with INR 1.3. Obtain abdominal ultrasound and KUB. Further plan an addendum to follow by Dr. Bailey. Current Visit: Yes Gastroenterology - PN: Subj Interval history: CC: Abdominal pain, nausea vomiting Patient is seen, awake and alert, with daughter at bedside. She states that she is feeling about the same at this time with some continued upper abdominal pain. She has had no nausea or vomiting and did tolerate some of her liquids on yesterday after the EGD. Dr. Juarez is consulted with patient at this time feels the safest option is to proceed with percutaneous drainage with cholecystostomy tube. Dr. Lozano has consulted with patient as well and is to proceed with this today. Her INR is noted at 1.9. She is to receive 2 units of fresh frozen plasma today before the procedure. Abdomen soft, mild tenderness. ROS: Denies shortness of breath or chest pain Exam (Progress Note) - Constitutional Vitals: Period Temp Pulse Resp BP Sys/Suárez Pulse Ox Last 24 Hr 98 F-100.3 F 75-88 16-32 98-128/52-84 93-98 General appearance: normal weight, no acute distress - Head Head exam: Present: normal inspection, normocephalic - Eye Eye exam: Present: other (Lids and conjunctivae are unremarkable). Absent: scleral icterus - ENT ENT exam: Present: normal exam, normal oropharynx - Neck Neck exam: Present: normal inspection - Respiratory Respiratory exam: Present: clear to auscultation bilaterally. Absent: rales, rhonchi, wheezes - Cardiovascular Cardiovascular exam: Present: regular rate and rhythm. Absent: diastolic murmur , JVD, systolic murmur - GI/Abdominal GI/Abdominal exam: Present: normal bowel sounds, tenderness, soft. Absent: ascites, distended, mass, organomegaly - Extremities Exam Extremities exam: Present: normal inspection, full ROM - Back Exam Back exam: Present: normal inspection - Neurological Exam Neurological exam: Present: alert, oriented X3 - Psychiatric Psychiatric exam: Present: normal affect, normal mood - Skin Skin exam: Present: normal color, warm, dry Results - Labs CBC & BMP: 02/05/17 05:10 02/05/17 05:10 Lab Results: I have reviewed the past 24 hour labs <Spike Bailey - Last Filed: 02/05/17 16:21> Exam (Progress Note) - Constitutional Vitals: Period Temp Pulse Resp BP Sys/Suárez Pulse Ox Last 24 Hr 97.6 F-100.3 F 75-89 16-20 97-141/45-84 94-96 Results - Labs CBC & BMP: 02/05/17 05:10 02/05/17 05:10
--- NOTE | 2017-02-05 09:51 | General Surgery Progress Note ---
Assessment and Plan (1) Acute cholecystitis Status: Acute Assessment and plan: She has a subacute cholecystitis creating a mass-effect in the right upper quadrant on exam with vague tenderness. With a thickened gallbladder I think that this is going to be a difficult cholecystectomy. This was discussed with the patient and her family. I have explained that we could either go ahead with a laparoscopic cholecystectomy with the understanding that there is a high chance of conversion to open and the potential for a more prolonged recovery or we could look at the option of percutaneous drainage and antibiotics. They are interested in percutaneous drainage and also discussed this with Dr. Bailey and he is in agreement. I have discussed this case also with Dr. Lozano from interventional radiology. She has an INR which is actually elevated from yesterday. It makes me wonder if yesterday's INR was in error. We will check this again in the morning to make sure that it is not increasing. I think that she will probably be okay for procedure tomorrow. Dr. Lozano is unable to get a satisfactory result from percutaneous drainage then we can look at surgery. The risks and benefits of each of these approaches were discussed in detail with the patient and the family and they agree with the current plan. I understand that we can change the plan as needed if she fails to respond to more conservative treatment 02/05: She has a little less pain today since she has been on antibiotics. She has not had nausea or vomiting. Her family thinks that she has been a little more alert. She has an elevated INR this morning. This is risen since yesterday despite being off of her Coumadin. I discussed this with Dr. Lozano and we will need to transfuse fresh frozen plasma so that she can get her percutaneous drainage. I discussed her plan of care with the family once again and also with Dr. Griffin. They would prefer to pursue a more conservative approach if possible which I think is reasonable considering the fact that she would likely require conversion to an open procedure and this would potentially have a higher chance of increased morbidity and mortality. Current Visit: Yes Subjective Patient reports: Present: feels better, pain is less. Absent: nausea, vomiting , fever Exam - Constitutional Vitals: Period Temp Pulse Resp BP Sys/Suárez Pulse Ox Last 24 Hr 98 F-100.3 F 75-88 16-32 98-128/52-84 93-98 General appearance: no acute distress - Head Head exam: Present: normocephalic - Eye Eye exam: Absent: scleral icterus - Respiratory Respiratory exam: Absent: accessory muscle use - GI/Abdominal GI/Abdominal exam: Present: mass, tenderness, soft. Absent: distended, rebound Results - Labs CBC & BMP: 02/05/17 05:10 02/05/17 05:10 Lab Results: I have reviewed the past 24 hour labs
--- NOTE | 2017-02-05 11:49 | Post Interventional Procedure ---
Pre-op diagnosis: Cholecystitis Post-op diagnosis: same Procedure: Percutaneous cholecystostomy Contrast: [id number], 5cc Flouroscopy: 0.5 min Radiologist: Mal Lozano Anesthesia: local Specimens: none sent Estimated blood loss: none Complications: none Condition: stable Assessment and Plan - Time spent with patient Time spent with patient: Less than 30 minutes (1) Acute cholecystitis Status: Acute Assessment and plan: A: Acute cholecystits P: Percutaneous cholecystostomy today after FFP infusion complete Current Visit: Yes
[2017-02-05] MEDS ORDERED: POTASSIUM CHLORIDE 20 MEQ TABLET PO ONE (12:00)
[2017-02-05] MEDS: ERTAPENEM 500 MG in SODIUM CHLORIDE 0.9% 100 ML IV SCH (12:21)
[2017-02-05] MEDS: SODIUM CHLORIDE 0.9% 1,000 ML IV SCH (12:23)
--- NOTE | 2017-02-05 13:24 | Interventional Radiology Rpt ---
IR cholecystostomy complete Indication: Cholecystitis. Poor operative candidate. PERCUTANEOUS CHOLECYSTOSTOMY Description: Formal timeout was performed. Right upper quadrant was studied with ultrasound and a distended thick-walled gallbladder identified containing extensive debris. Right upper quadrant was prepped and draped in sterile fashion. Under sonographic guidance, an AccuStick needle was advanced into the gallbladder lumen. Captured sonographic image documents needle position. Needle was exchanged over a wire for a 10 Maltese pigtail drain catheter. Pigtail drain catheter position was confirmed with a gentle contrast injection under fluoroscopy. Catheter was connected to a suction bag device and anchored with 3-0 Prolene at Percu-Stay. Patient tolerated the procedure well. Contrast: Omnipaque 350, 5 cc. Fluoroscopy: 0.5 minutes. 3 captured fluoroscopic images. Impression: Successful percutaneous cholecystostomy. PROCEDURE INTERPRETED AT [facility] DEPARTMENT OF RADIOLOGY Final Report Signed by: Mal Lozano M.D.
--- NOTE | 2017-02-05 14:19 | Hospitalist Progress Note ---
Assessment and Plan (1) Acute cholecystitis Status: Acute Assessment and plan: cont Invanz and IR drain today Current Visit: Yes (2) Hypertension Status: Chronic Assessment and plan: blood pressure better today Current Visit: Yes (3) Hypothyroidism Status: Chronic Assessment and plan: Continue levothyroxine Current Visit: Yes (4) Chronic anticoagulation Status: Chronic Assessment and plan: INR reverse with ffp will cont to monitor Current Visit: Yes (5) Hypokalemia Status: Acute Assessment and plan: Replaced and recheck in am Current Visit: Yes (6) GERD (gastroesophageal reflux disease) Status: Acute Assessment and plan: cont protonix po bid, stop reglan Current Visit: Yes (7) Hyponatremia Status: Acute Assessment and plan: resolved Current Visit: Yes Hospitalist: Subjective Interval history: Discussed case with dr. Ann WITT and he has asked IR to place a percutaneous drain. He is concerned she may need a open mary otherwise which is too much for someone at her age. He will leave the drain in for about 10-14 days and then remove it in his office. Family at bedside and good with plan. FFP given today to reverse her inr. Exam - Constitutional Vitals: Period Temp Pulse Resp BP Sys/Suárez Pulse Ox Last 24 Hr 97.6 F-100.3 F 75-89 16-20 97-141/45-84 94-96 Exam: Heart Rate-[RRR] Lungs-[CTAB] GI-[+bs tender in the epigastric region Ext-[no edema] Neuro [Motor 5/5], [alert and oriented times 2] psych [normal mood and affect] General [no acute distress Results - Labs CBC & BMP: 02/05/17 05:10 02/05/17 05:10 Lab Results: I have reviewed the past 24 hour labs
--- NOTE | 2017-02-05 14:26 | Pathology Report from [facility] ---
[facility] ACCESSION # : [id number] PATIENT NAME : Nasrin Purdy ORDERING DR : ANNE TORRES MD CLINICAL HX: N/V - Abdominal pain POST-OP DX: GERD - Gastric polyps SPECIMEN INFO: Gastric polyps GROSS DESCRIPTION: The specimen is received in formalin labeled with the patients name and consists of two bonds tissue fragments measuring 0.4 x 0.2 cm collectively. Submitted in one cassette. DIAGNOSIS FOR NASRIN PURDY: STOMACH, BIOPSY: Hyperplastic gastric polyp. No evidence of malignancy. H. pylori-like organisms not seen on H&E or special stain with appropriate control. COLLECTED DATE: 02/04/2017 [facility] REPORT DATE: 02/05/2017 ELECTRONICALLY SIGNED BY: Duke Ennis III, M.D. 02/05/2017 - 8:59:20 MTDFely
[2017-02-05] MEDS ORDERED: ACETAMINOPHEN 325 MG/10.15 ML UDCUP PO PRN (16:22)
[2017-02-05] MEDS: POTASSIUM CHLORIDE INJ 40 MEQ in SODIUM CHLORIDE 0.45% 1,000 ML IV SCH (19:37)
[2017-02-06 05:53] LABS: Basophils % 0.2 % (0.0-0.8); Eosinophils # 0.3 10*3/uL (0.0-0.87); Eosinophils % 3.1 % (0.00-10.9); Hematocrit 32.7 VOL% (35.7-47.0); Hemoglobin 10.8 GM/DL (12.0-16.0); Immature Granulocytes % 0.2 %; Immature Granulocytes Absolute 0.02 #; Lymphocytes # 0.8 10*3/uL (1.4-4.0); Lymphocytes % 9.2 % (21.3-54.2); Mean Corpuscular Hemoglobin 29 PG (27-34); Mean Corpuscular Volume 87.4 FL (87-102); Mean Platelet Volume 10.8 FL (9.6-12.0); Monocytes # 0.5 10*3/uL (0.11-0.8); Monocytes % 6.2 % (1.7-12.7); Neutrophils % 81.1 % (38.7-73.9); Platelet Count 173 T/CUMM (130-400); Red Blood Count 3.74 MC/CUMM (3.8-5.5); Red Cell Distribution Width 13.9 % (9.3-17.3); White Blood Count 8.7 T/CUMM (4-12)
[2017-02-06 05:58] LABS: INR 1.5; PT Patient Result 16.5 SECS
[2017-02-06 06:16] LABS: Calcium 7.3 MG/DL (8.5-10.1); Potassium 3.6 MMOL/L (3.5-5.1)
[2017-02-06] MEDS: ENOXAPARIN 40 MG/0.4 ML SYRINGE SUBCUT SCH (08:51)
[2017-02-06] MEDS: INSULIN REGULAR 100 UNIT/ML SUBCUT SCH ×4 (08:52→20:57)
[2017-02-06] MEDS: PANTOPRAZOLE 40 MG TABLET PO SCH (08:54)
[2017-02-06] MEDS: LEVOTHYROXINE 100 MCG TABLET PO SCH (08:54)
--- NOTE | 2017-02-06 10:15 | General Surgery Progress Note ---
Assessment and Plan (1) Acute cholecystitis Status: Acute Assessment and plan: Impression status post percutaneous cholecystostomy tube next Plan: Had a low-grade fever yesterday. No fever today. Vital signs stable. White blood cell count is down to 8.7. Her abdomen exam is good. She is back on a liquefied diet which is similar to what she takes at home. She is not quite taking in as much as she does normally. Overall she is improving. Continue current care. Current Visit: Yes Subjective Patient reports: Present: no new complaints Narrative: Feeling better. Status post percutaneous cholecystostomy tube. Exam - Constitutional Vitals: Period Temp Pulse Resp BP Sys/Suárez Pulse Ox Last 24 Hr 96.8 F-100.4 F 62-89 16-22 90-141/45-78 92-96 General appearance: no acute distress - Neck Neck exam: Present: normal inspection - Respiratory Respiratory exam: Present: clear to auscultation bilaterally - Cardiovascular Cardiovascular exam: Present: RRR - GI/Abdominal GI/Abdominal exam: Present: soft (Nondistended. Minimal tenderness around the percutaneous tube entrance site.) - Neurological Exam Neurological exam: Present: alert, oriented X3 Speech: Present: abnormal (Secondary to extensive oral surgery) - Skin Skin exam: Present: normal color, warm Results - Labs CBC & BMP: 02/06/17 05:19 02/06/17 05:19 Lab Results: I have reviewed the past 24 hour labs
[2017-02-06] MEDS ORDERED: MAGNESIUM HYDROXIDE SUSP 30 ML UDCUP PO ONE (11:35)
[2017-02-06] MEDS ORDERED: BISACODYL 5 MG TABLET PO PRN (11:36)
[2017-02-06] MEDS: ERTAPENEM 500 MG in SODIUM CHLORIDE 0.9% 100 ML IV SCH (12:50)
--- NOTE | 2017-02-06 14:55 | Hospitalist Progress Note ---
Assessment and Plan (1) Acute cholecystitis Status: Acute Assessment and plan: s/p percutaneous drain, cont Invanz Current Visit: Yes (2) Hypertension Status: Chronic Assessment and plan: controlled Current Visit: Yes (3) Hypothyroidism Status: Chronic Assessment and plan: Continue levothyroxine Current Visit: Yes (4) Chronic anticoagulation Status: Chronic Assessment and plan: does not need couamdin Current Visit: Yes (5) Hypokalemia Status: Acute Assessment and plan: cont to monitor even though okay today Current Visit: Yes (6) GERD (gastroesophageal reflux disease) Status: Acute Assessment and plan: cont protonix po bid Current Visit: Yes (7) Hyponatremia Status: Acute Assessment and plan: resolved Current Visit: Yes (8) Anemia Status: Acute Assessment and plan: trending down, continue to monitor Current Visit: Yes Hospitalist: Subjective Interval history: Patient looks great. Dr. Horner at bedside. Patient up in her chair. Will advance diet to pured. Patient having some hard stool will add some milk of mag and Dulcolax to her regimen. Need supplement vanilla ensure on tray. Still ran a low-grade temp last night. Exam - Constitutional Vitals: Period Temp Pulse Resp BP Sys/Suárez Pulse Ox Last 24 Hr 96.8 F-100.4 F 62-86 16-22 90-128/50-63 92-97 Exam: Heart Rate-[RRR] Lungs-[CTAB] GI-[+bs soft and nontender Ext-[no edema] Neuro [Motor 5/5], [alert and oriented times 3] psych [normal mood and affect] General [no acute distress Results - Labs CBC & BMP: 02/06/17 05:19 02/06/17 05:19 Labs: blood cx times 2 negative, pathology no malignancy
[2017-02-07 05:17] LABS: Basophils % 0.3 % (0.0-0.8); Eosinophils # 0.3 10*3/uL (0.0-0.87); Eosinophils % 5.8 % (0.00-10.9); Hematocrit 32.2 VOL% (35.7-47.0); Hemoglobin 10.9 GM/DL (12.0-16.0); Immature Granulocytes % 0.3 %; Immature Granulocytes Absolute 0.02 #; Lymphocytes % 16.6 % (21.3-54.2); Mean Corpuscular HGB Conc 33.9 GM/DL (32-36); Mean Corpuscular Hemoglobin 29 PG (27-34); Mean Corpuscular Volume 85.9 FL (87-102); Mean Platelet Volume 10.6 FL (9.6-12.0); Monocytes # 0.5 10*3/uL (0.11-0.8); Monocytes % 7.7 % (1.7-12.7); Neutrophils # 4.1 10*3/uL (1.4-7.4); Neutrophils % 69.3 % (38.7-73.9); Platelet Count 193 T/CUMM (130-400); Red Blood Count 3.75 MC/CUMM (3.8-5.5); Red Cell Distribution Width 13.9 % (9.3-17.3); White Blood Count 5.9 T/CUMM (4-12)
[2017-02-07 05:45] LABS: Calcium 7.2 MG/DL (8.5-10.1); Osmolality,Calculated 284.1 MOS/KG (273-304); Potassium 3.6 MMOL/L (3.5-5.1)
[2017-02-07 05:50] LABS: INR 1.2; PT Patient Result 12.5 SECS
[2017-02-07] MEDS: INSULIN REGULAR 100 UNIT/ML SUBCUT SCH ×4 (08:38→21:47)
[2017-02-07] MEDS: LEVOTHYROXINE 100 MCG TABLET PO SCH (08:43)
[2017-02-07] MEDS: ENOXAPARIN 40 MG/0.4 ML SYRINGE SUBCUT SCH (08:43)
[2017-02-07] MEDS: PANTOPRAZOLE 40 MG TABLET PO SCH (08:43)
--- NOTE | 2017-02-07 11:02 | General Surgery Progress Note ---
Assessment and Plan (1) Acute cholecystitis Status: Acute Assessment and plan: Impression status post percutaneous cholecystostomy tube next Plan: Has remained afebrile. She is doing well. Plans for discharge are being set up soon. Current Visit: Yes Subjective Patient reports: Present: no new complaints Narrative: No complaints. No abdominal pain. Percutaneous cholecystostomy tube is in place. She is back on her liquefied home diet. She remains somewhat deconditioned but overall is doing well. Exam - Constitutional Vitals: Period Temp Pulse Resp BP Sys/Suárez Pulse Ox Last 24 Hr 96.3 F-98.7 F 62-75 16-20 101-113/48-60 91-97 General appearance: no acute distress - Respiratory Respiratory exam: Present: clear to auscultation bilaterally - GI/Abdominal GI/Abdominal exam: Present: soft (Nontender nondistended) Results - Labs CBC & BMP: 02/07/17 04:41 02/07/17 04:41
--- NOTE | 2017-02-07 12:00 | Hospitalist Progress Note ---
Assessment and Plan (1) Acute cholecystitis Status: Acute Assessment and plan: s/p percutaneous drain, cont Invanz, home tomorrow with home health. Follow-up with Dr. Ann Oconnell the third in 1 week Current Visit: Yes (2) Hypertension Status: Chronic Assessment and plan: controlled Current Visit: Yes (3) Hypothyroidism Status: Chronic Assessment and plan: Continue levothyroxine Current Visit: Yes (4) Chronic anticoagulation Status: Chronic Assessment and plan: does not need couamdin any longer Current Visit: Yes (5) Hypokalemia Status: Acute Assessment and plan: Resolved Current Visit: Yes (6) GERD (gastroesophageal reflux disease) Status: Acute Assessment and plan: cont protonix po bid Current Visit: Yes (7) Hyponatremia Status: Acute Assessment and plan: resolved Current Visit: Yes (8) Anemia Status: Acute Assessment and plan: Stable Current Visit: Yes Hospitalist: Subjective Interval history: Patient draining still quite a bit. She is up and comfortable. She should be ready to go home tomorrow. She did not run any fevers overnight. Looks good. Dr. Horner is at bedside. Still having a little bit of problems with constipation. Exam - Constitutional Vitals: Period Temp Pulse Resp BP Sys/Suárez Pulse Ox Last 24 Hr 96.3 F-98.7 F 62-75 16-20 101-113/48-60 91-97 Exam: Heart Rate-[RRR] Lungs-[CTAB] GI-[+bs soft and nontender Ext-[no edema] Neuro [Motor 5/5], [alert and oriented times 3] psych [normal mood and affect] General [no acute distress Results - Labs CBC & BMP: 02/07/17 04:41 02/07/17 04:41 Lab Results: I have reviewed the past 24 hour labs
[2017-02-07] MEDS: MAGNESIUM HYDROXIDE SUSP 30 ML UDCUP PO PRN (12:02)
[2017-02-07] MEDS: ERTAPENEM 500 MG in SODIUM CHLORIDE 0.9% 100 ML IV SCH (12:03)
[2017-02-08 05:34] LABS: Basophils % 0.3 % (0.0-0.8); Eosinophils # 0.4 10*3/uL (0.0-0.87); Hematocrit 31.9 VOL% (35.7-47.0); Hemoglobin 10.7 GM/DL (12.0-16.0); Immature Granulocytes % 0.7 %; Immature Granulocytes Absolute 0.04 #; Lymphocytes % 17.4 % (21.3-54.2); Mean Corpuscular HGB Conc 33.5 GM/DL (32-36); Mean Corpuscular Hemoglobin 29 PG (27-34); Mean Platelet Volume 10.1 FL (9.6-12.0); Monocytes # 0.6 10*3/uL (0.11-0.8); Neutrophils # 3.8 10*3/uL (1.4-7.4); Neutrophils % 65.6 % (38.7-73.9); Platelet Count 209 T/CUMM (130-400); Red Blood Count 3.71 MC/CUMM (3.8-5.5); White Blood Count 5.8 T/CUMM (4-12)
[2017-02-08 05:47] LABS: PT Patient Result 10.5 SECS
[2017-02-08 06:03] LABS: Calcium 7.4 MG/DL (8.5-10.1); Osmolality,Calculated 281.4 MOS/KG (273-304)
--- NOTE | 2017-02-08 07:29 | General Surgery Progress Note ---
Assessment and Plan (1) Acute cholecystitis Status: Acute Assessment and plan: She has a subacute cholecystitis creating a mass-effect in the right upper quadrant on exam with vague tenderness. With a thickened gallbladder I think that this is going to be a difficult cholecystectomy. This was discussed with the patient and her family. I have explained that we could either go ahead with a laparoscopic cholecystectomy with the understanding that there is a high chance of conversion to open and the potential for a more prolonged recovery or we could look at the option of percutaneous drainage and antibiotics. They are interested in percutaneous drainage and also discussed this with Dr. Bailey and he is in agreement. I have discussed this case also with Dr. Lozano from interventional radiology. She has an INR which is actually elevated from yesterday. It makes me wonder if yesterday's INR was in error. We will check this again in the morning to make sure that it is not increasing. I think that she will probably be okay for procedure tomorrow. Dr. Lozano is unable to get a satisfactory result from percutaneous drainage then we can look at surgery. The risks and benefits of each of these approaches were discussed in detail with the patient and the family and they agree with the current plan. I understand that we can change the plan as needed if she fails to respond to more conservative treatment 02/05: She has a little less pain today since she has been on antibiotics. She has not had nausea or vomiting. Her family thinks that she has been a little more alert. She has an elevated INR this morning. This is risen since yesterday despite being off of her Coumadin. I discussed this with Dr. Lozano and we will need to transfuse fresh frozen plasma so that she can get her percutaneous drainage. I discussed her plan of care with the family once again and also with Dr. Griffin. They would prefer to pursue a more conservative approach if possible which I think is reasonable considering the fact that she would likely require conversion to an open procedure and this would potentially have a higher chance of increased morbidity and mortality. 02/08: She looks and feels much better. She has no abdominal pain and is tolerating a diet. She is afebrile with stable vital signs. She has much less drainage from her percutaneous drain. I am okay with her going home today with home health to manage her drain. I will see her back in the office in the next week or 2 and we can remove her drain in the office. She can go back on her anticoagulation from my standpoint. She should be discharged on antibiotics by mouth. Current Visit: Yes Subjective Patient reports: Present: feels better, tolerating a regular diet. Absent: still having pain, nausea, vomiting Exam - Constitutional Vitals: Period Temp Pulse Resp BP Sys/Suárez Pulse Ox Last 24 Hr 97.2 F-99.7 F 62-71 18-20 99-116/51-63 94-97 General appearance: no acute distress - Head Head exam: Present: normocephalic - Eye Eye exam: Absent: scleral icterus - Neck Neck exam: Present: trachea midline - Respiratory Respiratory exam: Absent: accessory muscle use - GI/Abdominal GI/Abdominal exam: Present: soft. Absent: distended, tenderness, rebound Results - Labs CBC & BMP: 02/08/17 04:58 02/08/17 04:58 Lab Results: I have reviewed the past 24 hour labs
[2017-02-08] MEDS: ENOXAPARIN 40 MG/0.4 ML SYRINGE SUBCUT SCH (08:50)
[2017-02-08] MEDS: PANTOPRAZOLE 40 MG TABLET PO SCH (08:51)
[2017-02-08] MEDS: LEVOTHYROXINE 100 MCG TABLET PO SCH (08:51)
[2017-02-08] MEDS: INSULIN REGULAR 100 UNIT/ML SUBCUT SCH ×2 (08:54→11:35)
--- NOTE | 2017-02-08 10:00 | Discharge Summary ---
Hospital Course - Hospital Course Hospital Course: Mrs Horner presented with nausea vomiting and RUQ pain. She had acute cholecystitis . She was seen by GI and general surgery and a cholecystostomy tube was placed to drain the gallbladder. She improved. She also had a very late growing (after 72 hours) 1/2 BCx for staph aureus that is likely a contaminant. [facility]. Repeat cultures have been drawn and her PCP Dr Riojas made aware. I also coordinated care with Dr Ann WITT who will see her in his clinic in 1-2 weeks. She has a good appetite. She will hold off on resuming her Norvasc as her BP here has been in normal range without it. 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 She will let him know it she starts taking it again. She will be discharged home with a walker. 40 minutes were spent in care coordination, discharge planning, medicine reconciliation, and documentation. - Time spent with patient Time with patient DS: Greater than 30 minutes Diagnosis - Discharge Diagnosis (1) History of oral cancer Status: Resolved (2) Chronic anticoagulation Status: Chronic (3) Acute cholecystitis Status: Resolved Specialty Discharge - Follow Up or Referrals Follow up with: Nikos Juarez III., MD [Physician] - 02/24/17 9:15 am (1-2 weeks) Kentrell Riojas MD [Primary Care Provider] - 02/22/17 2:20 pm (left message with office) Discharge Plan - Discharge Data Disposition: Home Health Service Condition at Discharge: Stable Discharge Diet: advance to your usual diet Activity: resume usual activities as tolerated - Discharge Medications New Ciprofloxacin Tab [Cipro Tab] 500 mg PO Q12HR #14 tablet Magnesium Hydroxide Susp [Milk of Magnesia] 30 ml PO DAILY PRN PRN Reason: Constipation Continue Denosumab [Prolia] 60 mg SUBCUT DIRECTED Raloxifene [Evista] 60 mg PO BEDTIME Levothyroxine Tab [Synthroid Tab] 100 mcg PO DAILY Calcium Carbonate 1,250 mg PO BID W/MEALS Warfarin Sodium 1 mg PO BID Warfarin Sodium 1 mg PO DAILY Discontinued amLODIPine [Norvasc] 5 mg PO BEDTIME - Follow Up or Referral Follow Up: Nikos Juarez III., MD [Physician] - 02/24/17 9:15 am (1-2 weeks) Kentrell Riojas MD [Primary Care Provider] - 02/22/17 2:20 pm (left message with office) - Forms/Instructions Instructions: Ciprofloxacin (By mouth), Cholecystitis (DC), Percutaneous Transhepatic Biliary Drainage (DC) Additional Discharge Instructions: resume Norvasc if your blood pressure becomes high. It is in the normal range at this time. resume the Coumadin if you have a recurrence of the superficial thrombophlebitis you had is September. Let Dr Riojas know if you restart it. Exam - Constitutional Vitals: Period Temp Pulse Resp BP Sys/Suárez Pulse Ox Last 24 Hr 97.2 F-99.7 F 63-71 18-20 99-122/54-63 93-97 General appearance: normal weight, no acute distress - Eye Eye exam: Present: EOMI. Absent: scleral icterus - Respiratory Respiratory exam: Present: clear to auscultation bilaterally - Cardiovascular Cardiovascular exam: Present: regular rate and rhythm - GI/Abdominal GI/Abdominal exam: Present: normal bowel sounds, soft. Absent: tenderness - Extremities Exam Extremities exam: Absent: edema Discharge Results Procedures and tests throughout hospitalization: Pending Orders 02/04/17 14:20 Blood Culture Stat Labs on day of discharge: Labs from last 24 hours 02/08/17 02/08/17 02/08/17 04:58 04:58 04:58 WBC 5.8 RBC 3.71 L Hgb 10.7 L Hct 31.9 L MCV 86.0 L MCH 29 MCHC 33.5 RDW 14.0 Plt Count 209 MPV 10.1 Neut % (Auto) 65.6 Lymph % (Auto) 17.4 L Sibley % (Auto) 10.0 Eos % (Auto) 6.0 Baso % (Auto) 0.3 Neut # (Auto) 3.8 Lymph # (Auto) 1.0 L Sibley # (Auto) 0.6 Eos # (Auto) 0.4 Baso # (Auto) 0.0 Immature Gran % 0.7 Nucleated RBC % 0.0 Immature Gran # 0.04 Nucleated RBCs # 0.00 Immature Plt Fraction 0.0 INR 1.0 PT Patient/Control Mix 10.5 Sodium 140 Potassium 4.0 Chloride 108 H Carbon Dioxide 25 Anion Gap 11.0 BUN 20 H Creatinine 0.70 GFR Calculation 71 BUN/Creatinine Ratio 28.00 H Glucose 104 Calculated Osmolality 281.4 Calcium 7.4 L Preliminary micro results at discharge 02/04/17 14:18 Blood Culture - Preliminary Blood No growth at 3 days DS: Provider Date of admission: 02/03/17 10:19 Primary care physician: Kentrell Riojas MD Attending physician on admission: Mal Winters MD Consults: 02/03/17 10:17 Consult to Physician [CONS] Routine Comment: nausea,vomiting, and epigastric pain Consulting Provider: Spike Bailey 02/04/17 10:45 Consult to Physician [CONS] Routine Comment: cholecystitis Consulting Provider: Cuba Andrade When should Consulting Provider be notified: Now 02/04/17 12:18 Consult to Physician [CONS] Routine Comment: Symptomatic gallstones Consulting Provider: Nikos Juarez III. When should Consulting Provider be notified: Now Consult to Specialist Group: Surgery Person Notified: karla Date Notified: 02/04/17 Time Notified: 13:00 Discharging clinician: Jessica Woodward MD
--- NOTE | 2017-02-08 10:07 | Gastrointestinal Progress Note ---
<Kylah Ames Fely - Last Filed: 02/08/17 10:05> Assessment and Plan (1) Abdominal pain Status: Acute Assessment and plan: 02/08-abdominal pain resolved. PERC drain is patent. For discharge home today. Father plan an addendum to follow Dr. Bailey. 02/05-continued mild upper abdominal pain, no nausea vomiting. EGD findings noted. For percutaneous cholecystostomy tube today. Further plan an addendum to follow Dr. Bailey peer 02/03-sudden onset of right upper quadrant abdominal pain radiating through to back with associated nausea and vomiting, intractable at present time. No history of gallbladder disease in the past. No known history of upper endoscopy or peptic ulcer disease. Anticoagulation held at present time with INR 1.3. Obtain abdominal ultrasound and KUB. Further plan an addendum to follow by Dr. Bailey. Gastroenterology - PN: Subj Interval history: CC: Abdominal pain Patient is seen awake and alert sitting up in chair eating breakfast. Daughter is present at bedside. Patient states she had an uneventful weekend and her abdominal pain is now resolved. She denies any nausea or vomiting and is tolerating her diet well. Abdomen is soft, nontender. Cholecystostomy tube is patent with bilious drainage noted. She has been seen by Dr. Juarez this morning and was okay to discharge from his standpoint and follow-up in clinic for drain removal in a couple of weeks. Dr. Woodward has also seen patient this morning and she is for discharge home today. ROS: Denies shortness of breath or chest pain Exam (Progress Note) - Constitutional Vitals: Period Temp Pulse Resp BP Sys/Suárez Pulse Ox Last 24 Hr 97.2 F-99.7 F 63-71 18-20 99-122/54-63 93-97 General appearance: normal weight, no acute distress - Head Head exam: Present: normal inspection, normocephalic - Eye Eye exam: Present: other (Lids and conjunctive are unremarkable). Absent: scleral icterus - ENT ENT exam: Present: normal exam, normal oropharynx - Neck Neck exam: Present: normal inspection - Respiratory Respiratory exam: Present: clear to auscultation bilaterally. Absent: rales, rhonchi, wheezes - Cardiovascular Cardiovascular exam: Present: regular rate and rhythm. Absent: diastolic murmur , JVD, systolic murmur - GI/Abdominal GI/Abdominal exam: Present: normal bowel sounds, soft. Absent: ascites, distended, mass, organomegaly, tenderness - Extremities Exam Extremities exam: Present: normal inspection, full ROM - Back Exam Back exam: Present: normal inspection - Neurological Exam Neurological exam: Present: alert, oriented X3 - Psychiatric Psychiatric exam: Present: normal affect, normal mood - Skin Skin exam: Present: normal color, warm, dry Results - Labs CBC & BMP: 02/08/17 04:58 02/08/17 04:58 Lab Results: I have reviewed the past 24 hour labs Specialty Discharge - Follow Up or Referrals Follow up with: Nikos Juarez III., MD [Physician] - 02/24/17 9:15 am (1-2 weeks) Kentrell Riojas MD [Primary Care Provider] - 02/22/17 2:20 pm (left message with office) <Spike Bailey - Last Filed: 02/08/17 21:31> Exam (Progress Note) - Constitutional Vitals: Period Temp Pulse Resp BP Sys/Suárez Pulse Ox Last 24 Hr 97.2 F-99.7 F 63-68 18-18 99-122/51-63 93-96 Results - Labs CBC & BMP: 02/08/17 04:58 02/08/17 04:58
--- NOTE | 2017-02-08 10:51 | Event Note ---
Kev Roman, [facility], acting as scribe for Dr. Kentrell Riojas Courtesy visit The patient's daughter saw us in the [place] on telemetry and asked us to see her mother. She is a long-term patient of Dr. Gan. Her son is Luis Daniel Horner. She was admitted with acute cholecystitis. Records have been reviewed. She did not require cholecystectomy, but rather had a percutaneous drain placed. Her symptoms have now resolved. The patient's Norvasc and Coumadin are presently on hold. Instructions have been given to the patient about restarting this as per Dr. Woodward. We agree. The patient had superficial thrombophlebitis in September 2016. She has been on Coumadin since that time, and on our exam today the patient has no symptoms of this. We agree with holding it at the present time. We had only planned to keep her on it approximately 6 months. The patient is to follow-up with Dr. Ann WITT in approximately 1 week. It is our understanding that she is for discharge today.
[2017-02-08] MEDS ORDERED: ERTAPENEM 1,000 MG in SODIUM CHLORIDE 0.9% 100 ML IV SCH (11:00)
[2017-02-08] MEDS: MAGNESIUM HYDROXIDE SUSP 30 ML UDCUP PO PRN (11:35)
[2017-02-08 13:30] VITALS: BP 112/51
[2017-02-08] MEDS ORDERED: CIPROFLOXACIN 500 MG TABLET PO SCH (21:00)
== END 2017-02-08 14:35 | disposition home health service (06) | DRG 445 ==
LOC: N.ED 23:41 → N.EDINP 23:41 → SUATTDRO 02-03 02:22 → N.TELEN 02-03 03:00 → SUATTDRO 02-03 10:19
PROVIDERS: ADMIT Internal Medicine; ATTEND Internal Medicine